=== PATIENT | male | born 1990 ===

== ENCOUNTER 2019-01-12 20:19 | Emergency (ER) | payer MEDICAID, OTHER ==
[2019-01-12] MEDS ORDERED: IBUPROFEN 600 MG TAB PO (23:00)
== END 2019-01-13 02:39 | disposition left against medical advice (07) ==
LOC: FTE 20:19
DX: S02.2XXA Fracture of nasal bones, initial encounter for closed fracture (principal); V49.50XA Passenger injured in collision with unspecified motor vehicles in traffic accident, initial encounter
CPT/HCPCS: 70140; 99283-25